=== PATIENT | male | born 1970 | race Caucasian/White ===

== ENCOUNTER → 2024-04-01 06:35 | Day surgery (SDC) | payer OTHER, SELFPAY ==
[2024-04-01 07:31] LABS: Glucose - Point of Care 190 mg/dl (70-99)
== END ==
LOC: GI 06:35
PROVIDERS: ATTENDING PHYSICIAN Surgery
DX: Z12.11 Encounter for screening for malignant neoplasm of colon (principal); Z98.0 Intestinal bypass and anastomosis status
CPT/HCPCS: G0105; 82962